=== PATIENT | female | born 1995 | race Caucasian/White ===

== ENCOUNTER 2016-12-28 01:16 | Emergency (ER) | payer OTHER ==
[~2016-12-28] VITALS: Ht 162.6 cm; Wt 61.2 kg
[2016-12-28 01:31] VITALS: BP 119/75
[2016-12-28] MEDS ORDERED: birth control pills PO (01:35)
== END 2016-12-28 05:11 | disposition left against medical advice (07) ==
LOC: M ED 02:57
DX: R05 Cough (principal); Z79.3 Long term (current) use of hormonal contraceptives; Z53.21 Procedure and treatment not carried out due to patient leaving prior to being seen by health care provider

== ENCOUNTER 2018-09-02 22:10 | Emergency (ER) | payer OTHER ==
[~2018-09-02] VITALS: Ht 162.6 cm; Wt 59.1 kg
[~2018-09-02 22:10] MED LIST: birth control pills PO
[2018-09-02] MEDS ORDERED: KETOROLAC 30 MG/ML VIAL (J1885) IV ONE (23:00)
[2018-09-02 23:02] LABS: HEMOGLOBIN 13.7 g/dl (12.0-15.5); MEAN CORPUSCULAR HEMOGLOBIN 29.9 pg (27.0-33.0); MEAN CORPUSCULAR HGB CONC 32.6 g/dl (32.0-36.5); MEAN CORPUSCULAR VOLUME 91.7 fl (80.0-96.0); PLATELET COUNT, AUTOMATED 278 10^3/uL (150-450); RED BLOOD COUNT 4.58 10^6/uL (4.00-5.40); WHITE BLOOD COUNT 8.7 10^3/uL (4.0-10.0)
[2018-09-02 23:18] LABS: BLOOD UREA NITROGEN 20 MG/DL (7-18); CALCIUM LEVEL 8.9 MG/DL (8.5-10.1); CARBON DIOXIDE LEVEL 26 MEQ/L (21-32); CHLORIDE LEVEL 105 MEQ/L (98-107); CREATININE FOR GFR 0.78 MG/DL (0.55-1.30); GLOMERULAR FILTRATION RATE > 60.0 (>60); GLUCOSE, FASTING 73 MG/DL (70-100); HCG, SERUM QUANTITATIVE < 1.0 MIU/ML; POTASSIUM SERUM 3.9 MEQ/L (3.5-5.1); SODIUM LEVEL 139 MEQ/L (136-145)
[2018-09-03] MEDS ORDERED: IBUP-1114 PO (00:11)
[2018-09-03] MEDS ORDERED: OXYCODONE/APAP 5MG/325MG(BULK FOR ED) 1 TABLET PO ONE (00:15)
[2018-09-03] MEDS ORDERED: PERCOCET 5MG/325MG TAB PO ONE (00:15)
[2018-09-03 00:35] VITALS: BP 129/81
--- NOTE | 2018-09-03 07:26 | ECGEPIP ---
Stationary ECG Study [facility] - ED Test Date: 2018-09-02 Pat Name: RAINER COREAS Department: Room: - Gender: F Genetic Technologist: SUDHA : 1995 Requested By: RIRI Arvizu Order Number: [id number] Reading MD: Aminta Quiroga Measurements Intervals [place] Rate: 66 P: 26 PA: 157 QRS: 54 QRSD: 100 T: 29 QT: 382 QTc: 402 Interpretive Statements SINUS RHYTHM INCOMPLETE RIGHT BUNDLE BRANCH BLOCK NO PRIOR FOR COMPARISON Electronically Signed On 09-03-2018 7:26:19 EST by Aminta Quiroga
--- NOTE | 2018-09-03 07:38 | REP ---
Clinical: Chest pain . Technique: PA and lateral. Comparison: 10/19/2010 . Findings: The mediastinum and cardiac silhouette are normal. Increased perihilar markings suggest viral pneumonia and bronchiolitis without focal consolidation. No effusion, or pneumothorax. Skeletal structures are intact and normal for age. Impression: No focal consolidation. Electronically Signed by Neo Gonzalez MD 09/03/2018 07:30 A
== END 2018-09-03 00:36 | disposition home or self-care (01) ==
LOC: M ED 22:10
DX: R07.89 Other chest pain (principal); R06.02 Shortness of breath
CPT/HCPCS: 71046; 80048; 84702; 85027; 85379; 93005; 96374; 99284; J1885

== ENCOUNTER → 2018-09-15 | Outpatient (CLI) | payer OTHER ==
[~2018-09-15] MED LIST changes: +IBUP-1114 PO
--- NOTE | 2018-09-15 17:09 | REP ---
LEFT FOOT SERIES: Four views of the left foot performed. There is no evidence of an acute fracture, dislocation or intrinsic bone disease. IMPRESSION: No fracture or dislocation. Electronically Signed by Shakeel Fernando MD 09/15/2018 05:11 P
== END ==
LOC: M WUC 16:36
PROVIDERS: ATTEND Physician Assistant
DX: M79.672 Pain in left foot (principal)

== ENCOUNTER → 2019-11-26 | Outpatient (CLI) | payer OTHER ==
--- NOTE | 2019-11-27 19:16 | REP ---
Clinical: Hypothyroidism. Technique: Real time ramirez scale and color evaluation using linear high frequency transducer. Findings: The thyroid gland is mildly enlarged and diffusely heterogeneous. The right lobe measures 5.6 x 1.9 x 1.8 cm. The isthmus measures 11 mm in width and includes 20 x 11 x 17 mm complex mildly hyperechoic nodule. Left lobe measures 4.7 x 1.5 x 1.5 cm and includes 1.1 x 0.8 x 0.9 cm isoechoic nodule. Impression: Heterogeneous mildly enlarged thyroid gland with two nonspecific nodules. Electronically Signed by Neo Gonzalez MD 11/27/2019 07:07 P
== END ==
LOC: M RAD 14:51
PROVIDERS: ATTEND Nurse Practitioner
DX: E03.9 Hypothyroidism, unspecified (principal); E04.2 Nontoxic multinodular goiter

== ENCOUNTER → 2020-05-01 | Outpatient (CLI) | payer BC ==
--- NOTE | 2020-05-08 06:31 | REP ---
TMJ SERIES: 5-VIEWS HISTORY: Bilateral temporomandibular joint disorder. Persistent bilateral jaw pain. FINDINGS: There is no evidence of mandibular bony destructive lesion. No condylar fracture is observed. Temporomandibular joint spaces are preserved. No radiographic evidence of arthropathy. IMPRESSION: Negative radiographs of the temporomandibular joints. [facility]
== END ==
LOC: M RAD 17:36
PROVIDERS: ATTEND Nurse Practitioner
DX: M26.603 Bilateral temporomandibular joint disorder, unspecified (principal)

== ENCOUNTER → 2021-05-15 | Outpatient (REF) | payer BC ==
[2021-05-15 11:20] LABS: RSV AMPLIFICATION NEGATIVE (NEGATIVE)
== END ==
LOC: M LAB REF 10:00
PROVIDERS: ATTEND Pediatrics
DX: Z20.828 Contact with and (suspected) exposure to other viral communicable diseases (principal)

== ENCOUNTER → 2021-06-29 | Outpatient (REF) | payer BC ==
[2021-06-29 11:08] LABS: RSV AMPLIFICATION NEGATIVE (NEGATIVE)
== END ==
LOC: M LAB REF 09:59
PROVIDERS: ATTEND Pediatrics
DX: Z20.822 Contact with and (suspected) exposure to COVID-19 (principal)

== ENCOUNTER → 2021-07-27 | Outpatient (REF) | payer BC | LOC: M LAB REF 09:55 | PROVIDERS: ATTEND Pediatrics | DX: Z20.822 Contact with and (suspected) exposure to COVID-19 (principal) ==

== ENCOUNTER → 2021-07-31 | Outpatient (REF) | payer BC ==
[2021-07-31 10:35] LABS: RSV AMPLIFICATION NEGATIVE (NEGATIVE)
== END ==
LOC: M LAB REF 09:20
PROVIDERS: ATTEND Pediatrics
DX: Z20.822 Contact with and (suspected) exposure to COVID-19 (principal)

== ENCOUNTER → 2021-10-19 | Outpatient (REF) | payer BC | LOC: M LAB REF 12:26 | PROVIDERS: ATTEND Pediatrics | DX: Z20.822 Contact with and (suspected) exposure to COVID-19 (principal) ==

== ENCOUNTER → 2021-11-24 | Outpatient (REF) | payer BC | LOC: M LAB REF 09:57 | PROVIDERS: ATTEND Pediatrics | DX: Z20.822 Contact with and (suspected) exposure to COVID-19 (principal) ==

== ENCOUNTER → 2022-04-26 | Outpatient (CLI) | payer BC | LOC: M RAD 17:13 | PROVIDERS: ATTEND Pediatrics | DX: R10.9 Unspecified abdominal pain (principal); K59.00 Constipation, unspecified ==

== ENCOUNTER → 2022-04-29 | Outpatient (REF) | payer BC | LOC: M LAB REF 12:54 | PROVIDERS: ATTEND Pediatrics | DX: R19.7 Diarrhea, unspecified (principal); R10.9 Unspecified abdominal pain ==

== ENCOUNTER → 2022-05-12 | Outpatient (REF) | payer BC | LOC: M PLALAB 11:54 | PROVIDERS: ATTEND Nurse Practitioner Family | DX: Z12.4 Encounter for screening for malignant neoplasm of cervix (principal) | CPT/HCPCS: 87624; G0123 ==

== ENCOUNTER 2023-01-28 19:41 | Emergency (ER) | payer BC ==
[~2023-01-28] VITALS: Ht 160 cm; Wt 61.4 kg
[2023-01-28 19:42] VITALS: TEMP 97
[2023-01-28 20:35] LABS: BASO # 0.1 10^3/uL (0.0-0.2); EOS # 0.1 10^3/uL (0.0-0.5); EOS % 1.5 % (0.0-3.0); HEMATOCRIT 37.6 % (36.0-47.0); HEMOGLOBIN 12.4 g/dl (12.0-15.5); LYMPH # 3.1 10^3/uL (1.5-5.0); LYMPH % 42.9 % (24.0-44.0); MONO # 0.6 10^3/uL (0.0-0.8); MONO % 8.4 % (2.0-8.0); NEUTROPHILS # 3.3 10^3/uL (1.5-8.5); NEUTROPHILS % 45.9 % (36.0-66.0); PLATELET COUNT, AUTOMATED 249 10^3/uL (150-450); RED BLOOD COUNT 4.13 10^6/uL (4.00-5.40); WHITE BLOOD COUNT 7.1 10^3/uL (4.0-10.0)
[2023-01-28 20:43] LABS: CK-MB VALUE MASS < 1.0 NG/ML (<3.6)
[2023-01-28 20:44] LABS: CPK CREATINE PHOSPHOKINASE 114 U/L (34-145); MB/CK RELATIVE INDEX 0.87 (< OR =4)
[2023-01-28 20:46] LABS: THYROID STIMULATING HORMONE 20.086 uIU/ML (0.55-4.78)
[2023-01-28 20:47] LABS: FREE T4 0.92 NG/DL (0.89-1.76)
[2023-01-28 20:49] LABS: BLOOD UREA NITROGEN 12 MG/DL (9-23); CALCIUM LEVEL 8.7 MG/DL (8.5-10.1); CARBON DIOXIDE LEVEL 24 MMOL/L (20-31); CHLORIDE LEVEL 111 MMOL/L (98-107); CREATININE FOR GFR 0.73 MG/DL (0.55-1.30); GLOMERULAR FILTRATION RATE > 60.0 (>60); GLUCOSE, FASTING 78 MG/DL (60-100); MAGNESIUM LEVEL 1.9 MG/DL (1.8-2.4); PHOSPHORUS LEVEL 3.8 MG/DL (2.5-4.9); POTASSIUM SERUM 4.1 MMOL/L (3.5-5.1); SODIUM LEVEL 141 MMOL/L (136-145)
[2023-01-28] MEDS ORDERED: ACETAMINOPHEN TAB 650MG DOSE (2X325MG) PO ONE (20:50)
[2023-01-28 20:52] LABS: HCG, SERUM QUALITATIVE NEGATIVE (NEGATIVE)
[2023-01-28 20:57] LABS: RSV AMPLIFICATION NEGATIVE (NEGATIVE)
[2023-01-28] MEDS ORDERED: ISOVUE-370 76% 100ML VIAL As Ordered ONE (21:03)
[2023-01-28] MEDS ORDERED: ONDANSETRON 4MG 2ML VIAL As Ordered ONE (21:17)
[2023-01-28] MEDS ORDERED: ONDANSETRON 4MG 2ML VIAL IV ONE (21:20)
[2023-01-28] MEDS ORDERED: NITROGLYCERIN 0.4MG SUBL TABLET SL STA (21:31)
[2023-01-28 21:34] LABS: CK-MB VALUE MASS < 1.0 NG/ML (<3.6)
[2023-01-28 21:35] LABS: CPK CREATINE PHOSPHOKINASE 111 U/L (34-145)
[2023-01-28] MEDS ORDERED: NS 1,000 ML IV SCH (21:35)
[2023-01-28 23:25] LABS: CK-MB VALUE MASS < 1.0 NG/ML (<3.6)
[2023-01-28 23:26] LABS: CPK CREATINE PHOSPHOKINASE 102 U/L (34-145); MB/CK RELATIVE INDEX 0.98 (< OR =4)
[2023-01-28 23:41] VITALS: O2SAT 98
[2023-01-28 23:45] VITALS: BP 104/67
== END 2023-01-29 00:08 | disposition home or self-care (01) ==
LOC: M ED 19:41
DX: R07.9 Chest pain, unspecified (principal); R55 Syncope and collapse; I45.10 Unspecified right bundle-branch block; R00.1 Bradycardia, unspecified; Z79.1 Long term (current) use of non-steroidal anti-inflammatories (NSAID); Z79.899 Other long term (current) drug therapy
CPT/HCPCS: 70450; 71046; 71275; 80048; 82550; 82553; 83735; 84100; 84439; 84443; 84484; 84703; 85025; 87631; 93005; 94760; 96361; 96374; 99285; J2405; Q9967

== ENCOUNTER → 2023-08-22 | Outpatient (REF) | payer BC ==
[2023-08-22 20:03] LABS: HEMATOCRIT 41.7 % (36.0-47.0); HEMOGLOBIN 13.9 g/dl (12.0-15.5); MEAN CORPUSCULAR HGB CONC 33.3 g/dl (32.0-36.5); MEAN CORPUSCULAR VOLUME 89.9 fl (80.0-96.0); PLATELET COUNT, AUTOMATED 257 10^3/uL (150-450); RED BLOOD COUNT 4.64 10^6/uL (4.00-5.40); WHITE BLOOD COUNT 7.8 10^3/uL (4.0-10.0)
[2023-08-22 20:32] LABS: ALBUMIN 4.2 G/DL (3.2-5.2); ALKALINE PHOSPHATASE 75 U/L (46-116); ALT/SGPT 13 U/L (7.0-40); AST/SGOT 14 U/L (<34); BILIRUBIN,TOTAL 0.3 MG/DL (0.3-1.2); BLOOD UREA NITROGEN 14 MG/DL (9-23); CALCIUM LEVEL 9.5 MG/DL (8.5-10.1); CARBON DIOXIDE LEVEL 26 MMOL/L (20-31); CHLORIDE LEVEL 107 MMOL/L (98-107); CREATININE FOR GFR 0.68 MG/DL (0.55-1.30); GLOMERULAR FILTRATION RATE > 60.0 (>60); GLUCOSE, FASTING 99 MG/DL (60-100); POTASSIUM SERUM 3.9 MMOL/L (3.5-5.1); SODIUM LEVEL 141 MMOL/L (136-145); TOTAL PROTEIN 7.1 G/DL (5.7-8.2)
[2023-08-22 20:34] LABS: THYROID STIMULATING HORMONE 8.137 uIU/ML (0.55-4.78)
== END ==
LOC: M LAB REF 15:07
PROVIDERS: ATTEND Internal Medicine
DX: E03.9 Hypothyroidism, unspecified (principal)

== ENCOUNTER → 2023-10-20 | Outpatient (CLI) | payer BC ==
[2023-10-20 16:30] LABS: BASO # 0.1 10^3/uL (0.0-0.2); BASO % 0.8 % (0.0-1.0); EOS # 0.1 10^3/uL (0.0-0.5); EOS % 0.9 % (0.0-3.0); HEMATOCRIT 40.3 % (36.0-47.0); HEMOGLOBIN 13.4 g/dl (12.0-15.5); LYMPH # 2.2 10^3/uL (1.5-5.0); LYMPH % 28.3 % (24.0-44.0); MEAN CORPUSCULAR HGB CONC 33.3 g/dl (32.0-36.5); MEAN CORPUSCULAR VOLUME 90.2 fl (80.0-96.0); MONO # 0.6 10^3/uL (0.0-0.8); MONO % 7.8 % (2.0-8.0); NEUTROPHILS # 4.8 10^3/uL (1.5-8.5); NEUTROPHILS % 61.9 % (36.0-66.0); PLATELET COUNT, AUTOMATED 270 10^3/uL (150-450); RED BLOOD COUNT 4.47 10^6/uL (4.00-5.40); WHITE BLOOD COUNT 7.8 10^3/uL (4.0-10.0)
[2023-10-20 16:55] LABS: BLOOD UREA NITROGEN 9 MG/DL (9-23); CARBON DIOXIDE LEVEL 26 MMOL/L (20-31); CHLORIDE LEVEL 107 MMOL/L (98-107); CHOLESTEROL LEVEL 159 MG/DL (<200); CHOLESTEROL RISK RATIO 3.04 (<5); CREATININE FOR GFR 0.65 MG/DL (0.55-1.30); GLOMERULAR FILTRATION RATE > 60.0 (>60); GLUCOSE, FASTING 87 MG/DL (60-100); HDL CHOLESTEROL 52.3 MG/DL (>40); LDL CHOLESTEROL 97.5 MG/DL (<100); NON-HDL-C 106.7 MG/DL; POTASSIUM SERUM 3.9 MMOL/L (3.5-5.1); SODIUM LEVEL 138 MMOL/L (136-145); TRIGLYCERIDES LEVEL 46 MG/DL (<150)
[2023-10-20 16:56] LABS: FOLLICLE STIMULATING HORMONE 2.6 mIU/ML; LUTEINIZING HORMONE 2.3 mIU/ML; THYROID STIMULATING HORMONE 4.351 uIU/ML (0.55-4.78); THYROXINE (T4) 10.3 UG/DL (4.5-10.9)
[2023-10-20 16:57] LABS: ESTRADIOL 112.6 PG/ML
[2023-10-20 16:58] LABS: PROGESTERONE 8.36 NG/ML
[2023-10-20 17:00] LABS: FREE THYROXINE INDEX 4.2 % (1.3-4.8); T UPTAKE 41.2 % (22.5-37.0)
[2023-10-22 21:08] LABS: TESTOSTERONE FREE (DIRECT) 5.3 pg/mL (0.0-4.2)
== END ==
LOC: M WUC 11:55
PROVIDERS: ATTEND Nurse Practitioner Family
DX: E06.3 Autoimmune thyroiditis (principal)